=== PATIENT | female | born 1985 | race Caucasian/White ===

== ENCOUNTER 2022-11-07 11:59 | Inpatient (IN) | payer BC ==
[2022-11-07] MEDS ORDERED: Iopamidol-370 76% 500 ML MDV (1 ML CHARGE) ONE (12:02)
[2022-11-07] MEDS ORDERED: Ondansetron PF 4 MG/2 ML Vial ONE ×2 (12:22→20:49)
[2022-11-07] MEDS ORDERED: Ketorolac Tromethamine 30 MG/ML VIAL ONE (12:23)
[2022-11-07 12:29] LABS: #Monocytes 0.7 thou/uL (0.11-0.59); #Neutrophils 15.3 thou/uL (1.40-6.50); %Basophils 0.2 % (0.0-1.0); %Eosinophils 0.2 % (0.0-10.0); %Lymphocytes 5.7 % (21.0-51.0); %Monocytes 3.8 % (0.0-10.0); %Neutrophils 89.5 % (42.0-75.0); Hematocrit 37.6 % (36.0-47.0); Hemoglobin 12.9 g/dL (12.0-16.0); Mean Corpuscular HGB CONC 34.3 g/dL (32.0-36.0); Mean Corpuscular Hemoglobin 32.3 pg (27.0-31.0); Mean Corpuscular Volume 94.2 fl (78.0-98.0); Mean Platelet Volume 10.2 fL (7.4-10.4); Platelet Count 194 10x3/uL (130-400); RBC Distribution Width 11.9 % (11.5-14.5); Red Blood Cell (RBC) Count 3.99 mill/uL (4.20-5.40); White Blood Cell (WBC) Count 17.1 10x3/uL (4.8-10.8)
[2022-11-07 12:33] LABS: Bacteria/HPF None Seen HPF (None Seen); Bilirubin Negative (Negative); Blood, Urine Negative (Negative); CAUTI Indications for Culture Dysuria,urgency,freq; Clarity Clear (Clear); Glucose, Urine (Dipstick) Normal (Negative); Ketone, Urine 10 mg/dL (Negative); Leukocyte 75 Leu/uL (Negative); Nitrite Negative (Negative); Protein, Urine (Dipstick) 10 mg/dL (Neg-Trace); RBC/HPF 0-3 HPF (0-3); Specific Gravity, Urine 1.019 (1.002-1.036); Squamous Epithelial 0-3 HPF (0-3); Urobilinogen Normal mg/dL (Less than 2); WBC/HPF 21-50 HPF (0-3)
[2022-11-07 12:46] LABS: BHCG - Serum Negative (NEGATIVE); Pregs Control Background? CLEAR/WHITE (CLR/WHITE); Pregs Control Bar Appear? YES (CONTROL BAR)
[2022-11-07] MEDS ORDERED: Morphine 4 MG/ML VIAL ONE (12:48)
[2022-11-07 12:52] LABS: ALT (SGPT) 12 U/L (8-55); AST (SGOT) 16 U/L (5-34); Albumin 4.2 g/dL (3.5-5.0); Alkaline Phosphatase 63 U/L (40-110); Anion Gap 14 mmol/L (10-20); BUN (Urea Nitrogen) 8 mg/dL (7.0-18.7); Bilirubin, Total 1.1 mg/dL (0.2-1.2); Calc. Creatinine Clearance 0 mL/min (70-130); Calcium 9.2 mg/dL (7.8-10.44); Carbon Dioxide 22 mmol/L (22-29); Chloride 104 mmol/L (98-107); Estimated GFR 104; Globulin 3.3 g/dL (2.4-3.5); Glucose 103 mg/dL (70-105); Lipase Less than 4 U/L (8-78); Protein, Total 7.5 g/dL (6.0-8.3); Sodium 136 mmol/L (136-145)
[2022-11-07 13:00] LABS: Urine Culture Reflex Yes Yes
[2022-11-07] MEDS ORDERED: fentaNYL 50 mcg/mL 1 mL Vial ONE ×4 (14:05→20:45)
[2022-11-07] MEDS ORDERED: cefTRIAXone (ROCEPHIN) 2 GM VIAL ONE (18:48)
[2022-11-07] MEDS ORDERED: Ondansetron ODT 4 MG TAB PO PRN (20:19)
[2022-11-07] MEDS ORDERED: Senokot S 8.6-50 MG TAB PO PRN (20:19)
[2022-11-07] MEDS ORDERED: Calcium Carbonate 500 MG ChewTAB PO PRN (20:19)
[2022-11-07 21:29] VITALS: BMI 25.2
[2022-11-07] MEDS: D5 1/2 NS w/20 mEq KCL 1,000 ML IV SCH (21:36)
[2022-11-07] MEDS: Famotidine 20 MG TAB PO SCH (21:37)
[2022-11-07] MEDS: Ketorolac Tromethamine 30 MG/ML VIAL IVP PRN (21:49)
[2022-11-08] MEDS ORDERED: Ketorolac Tromethamine 30 MG/ML VIAL IVP SCH ×2 (00:15→00:45)
[2022-11-08] MEDS ORDERED: Acetaminophen 500 MG TAB PO SCH (00:15)
[2022-11-08] MEDS ORDERED: traMADol HCl 50 MG TAB PO SCH (00:45)
[2022-11-08] MEDS ORDERED: Sodium Chloride 0.9% 500 ML IV SCH (00:45)
[2022-11-08] MEDS ORDERED: Sodium Chloride 0.9% 1,000 ML IV SCH (02:45)
[2022-11-08 08:15] LABS: #Eosinphils 0.2 thou/uL (0.0-0.7); #Monocytes 0.5 thou/uL (0.11-0.59); #Neutrophils 6.6 thou/uL (1.40-6.50); %Basophils 0.4 % (0.0-1.0); %Eosinophils 1.8 % (0.0-10.0); %Lymphocytes 14.7 % (21.0-51.0); %Neutrophils 76.7 % (42.0-75.0); Hematocrit 32.5 % (36.0-47.0); Hemoglobin 10.9 g/dL (12.0-16.0); Mean Corpuscular HGB CONC 33.5 g/dL (32.0-36.0); Mean Platelet Volume 10.5 fL (7.4-10.4); Platelet Count 151 10x3/uL (130-400); RBC Distribution Width 12.2 % (11.5-14.5); White Blood Cell (WBC) Count 8.6 10x3/uL (4.8-10.8)
[2022-11-08 08:34] LABS: Anion Gap 9 mmol/L (10-20); BUN (Urea Nitrogen) 7 mg/dL (7.0-18.7); Calc. Creatinine Clearance 128 mL/min (70-130); Calcium 8.3 mg/dL (7.8-10.44); Carbon Dioxide 23 mmol/L (22-29); Chloride 111 mmol/L (98-107); Estimated GFR 115; Glucose 114 mg/dL (70-105); Sodium 139 mmol/L (136-145)
[2022-11-08 08:44] LABS: Mean Corpuscular Volume 98.5 fl (78.0-98.0)
[2022-11-08] MEDS: cefTRIAXone\\ROCEPHIN 1 GM in Sodium Chloride 0.9% 100 ML IVPB SCH (08:44)
[2022-11-08] MEDS: Famotidine 20 MG TAB PO SCH ×2 (08:45→21:00)
[2022-11-08] MEDS: D5 1/2 NS w/20 mEq KCL 1,000 ML IV SCH (08:45)
[2022-11-08] MEDS: Acetaminophen 325 MG TAB PO PRN (11:42)
[2022-11-08] MEDS: Ketorolac Tromethamine 30 MG/ML VIAL IVP PRN (11:42)
[2022-11-08] MEDS: Azithromycin 250 MG TAB PO SCH (17:00)
[2022-11-09] MEDS: Azithromycin 250 MG TAB PO SCH (04:47)
[2022-11-09 07:55] VITALS: BP 108/67; TEMP 97.8
[2022-11-09] MEDS: Famotidine 20 MG TAB PO SCH (09:34)
[2022-11-09] MEDS: Acetaminophen 325 MG TAB PO PRN (09:35)
[2022-11-09] MEDS: cefTRIAXone\\ROCEPHIN 1 GM in Sodium Chloride 0.9% 100 ML IVPB SCH (09:35)
[2022-11-09 11:18] LABS: Chlamydia by PCR, Vaginal Swab Not Detected (NotDetected); GC by PCR, Vaginal Swab DETECTED (NotDetected)
== END 2022-11-09 11:00 | disposition home or self-care (01) | DRG 392 ==
LOC: ERS 11:59 → T4-A 20:22 → OBSVTOIN 11-08 15:57
PROVIDERS: ADMIT Student in an Organized Health Care Education/Training Program; ATTEND Family Medicine
DX: K52.9 Noninfective gastroenteritis and colitis, unspecified (principal); N10 Acute pyelonephritis; N76.0 Acute vaginitis; D72.828 Other elevated white blood cell count
CPT/HCPCS: 36415; 74177; 76856; 80048; 80053; 81001; 83605; 83690; 84703; 85025; 87086; 87480; 87491; 87510; 87591; 87660; 96361; 96365; 96375; 96376; G0378; J0696; J1885; J2270; J2405; J3010; J3480; J3490; J7030; J7050; Q0162; Q9967